=== PATIENT | female | born 1990 | race African-American/Black ===

== ENCOUNTER 2017-03-04 22:03 | Emergency (ER) | payer BC ==
[~2017-03-04 22:03] MED LIST: AMOXICILLIN875 MG PO; BACTRIM DS TABL1 TA1 PO; BACTRIM DS TABL1 TAB PO; BIRTH CONTROL PILL PO; CIPRO PO; DEPO-PROVER150 MG/ML INJ; FLAGYL PO; IBUPROFEN800 MG PO; NO MEDICATIONS; PERCOCET5/325 PO; PREDNISONE PO; SKELAXIN PO; TYLENOL #3 PO; ZOFRAN PO; ZYRTEC10 M2 PO
== END 2017-03-04 22:41 | disposition home or self-care (01) ==
LOC: SED 22:03
DX: J02.0 Streptococcal pharyngitis (principal)
CPT/HCPCS: 96372; 99283; J0561

== ENCOUNTER 2017-07-08 07:32 | Emergency (ER) | payer BC | END 2017-07-08 08:50 | disposition home or self-care (01) | LOC: SED 07:32 | DX: J02.0 Streptococcal pharyngitis (principal) | CPT/HCPCS: 87880; 96372; 99283; J0561 ==